=== PATIENT | female | born 1985 ===

== ENCOUNTER 2017-10-08 14:38 | Emergency (ER) | payer MEDICARE ==
[2017-10-08 16:50] VITALS: BMI 26.8
[2017-10-08 17:56] LABS: SQUAMOUS EPITHIAL 9 /hpf (0-5); URINE BACTERIA MANY (<OCC); URINE BILIRUBIN NEGATIVE (NEGATIVE); URINE BLOOD NEGATIVE (NEGATIVE); URINE CLARITY CLOUDY (Clear); URINE COLOR AMBER (YELLOW); URINE GLUCOSE (UA) NEG (Normal); URINE HYALINE CAST 0-2 /hpf (0-2); URINE LEUKOCYTE ESTERASE NEG Leu/uL (Negative); URINE PROTEIN 30 mg/dL (NEGATIVE)
--- NOTE | 2017-10-08 18:50 | OBHP ---
Datetime: 10/08/2017 18:41 IP Adm Impression: , intrauterine IP Chief Complaint Other: back pains IP Adm Impression Other: back pains IP Admit Plan: Observation/Evaluation Admit Comment, IP Provider: pt monitored and u/a done ketones/nitrate neg but bact Many D/C home wi th po Macrobid and increased po fluids Instructions given and will folllow in office Pelvic Type - PN: Adequate Extremities - PN: Normal Abdomen - PN: Abnormal Back - PN: Normal Breast - PN: Normal Lungs - PN: Normal Thyroid - PN: Normal Neurologic - PN: Normal HEENT - PN: Normal General - PN: Normal FHR - Baseline A Provider: 140 Membranes, Provider: Intact Contraction Comments Provider: none Comments, ACOG Physical Exam: Abd soft gravid No CVA tenderness Ext no calf tenderness Gestation - Est Wks by US: 34.0 IP Hx Assessment: The History has been Reviewed and is Current EGA AdmitDate IP: 34.0 IP Chief Complaint: Other NICHD Variability Prov Fetus A: Moderate 6-25bpm NICHD Decel Fetus A IP Provider: None Dilatation, Provider: closed Effacement, Provider: none Genitourinary Exam: Normal DTRs - PN: Normal
[2017-10-08 22:58] VITALS: BP 110/66; PULSE 89; O2SAT 100
== END 2017-10-08 18:35 | disposition home or self-care (01) ==
LOC: MERGE 14:38 → H.EROB2 14:38
DX: O26.893 Other specified pregnancy related conditions, third trimester (principal); M54.9 Dorsalgia, unspecified; Z3A.34 34 weeks gestation of pregnancy

== ENCOUNTER 2017-10-24 14:56 | Emergency (ER) | payer MEDICARE ==
[2017-10-24 15:36] VITALS: BMI 27.2
[2017-10-24] MEDS ORDERED: Betamethasone Soluspan 30 mg/5mL Inj Susp IM ONE (15:38)
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
[2017-10-24] MEDS ORDERED: Lactated Ringer's 1,000 ML IV SCH (16:30)
[2017-10-24 17:02] LABS: SQUAMOUS EPITHIAL 2 /hpf (0-5); URINE BACTERIA RARE (<OCC); URINE BILIRUBIN NEGATIVE (NEGATIVE); URINE BLOOD NEGATIVE (NEGATIVE); URINE CLARITY CLOUDY (Clear); URINE COLOR YELLOW (YELLOW); URINE GLUCOSE (UA) NEG (Normal); URINE LEUKOCYTE ESTERASE NEG Leu/uL (Negative); URINE PROTEIN 30 mg/dL (NEGATIVE)
--- NOTE | 2017-10-24 18:01 | US ---
Date of service: 10/24/2017 PROCEDURE: Limited transvaginal examination for evaluation of cervical length. HISTORY: cervical length only COMPARISON: None TECHNIQUE: Transvaginal pelvic ultrasound was performed. FINDINGS: The mean cervical length is 2.89 cm. Maximal cervical length was 3.33 cm. IMPRESSION: The average cervical length is 2.89 cm.
[2017-10-25 02:15] VITALS: BP 114/66; PULSE 102; O2SAT 100
== END 2017-10-24 19:08 | disposition home or self-care (01) ==
LOC: H.EROB2 14:56
DX: O44.03 Complete placenta previa NOS or without hemorrhage, third trimester (principal); Z23 Encounter for immunization; Z3A.36 36 weeks gestation of pregnancy
CPT/HCPCS: 76830; 76856; 81003; 96372; 99282; J0702

== ENCOUNTER 2017-10-25 14:05 | Emergency (ER) | payer MEDICARE ==
[2017-10-24 15:36] VITALS: BMI 27.2
[2017-10-25] MEDS ORDERED: Betamethasone Soluspan 30 mg/5mL Inj Susp IM ONE (15:24)
--- NOTE | 2017-10-25 19:53 | OBHP ---
Datetime: 10/25/2017 15:21 IP Adm Impression: , intrauterine IP Chief Complaint Other: Betamethasone dose Admit Comment, IP Provider: 32 y/o with EGA 36.3, EDC 11/19 who presents today for Betamethasone shot second dose. Denies CONTX, vaginal bleeding, LOF,trauma or recent sexual activity. Reports posi tive FM. ROS: unremarkable, except as per HPI. OBGYN: Hx sig for Placenta Previa and is schedule for next week. care p: Dr Go PMH: Chronic back pain FMH: mother HTN SURGH: cholecystectomy, back surgery, knee surgery, ovarian cystectomy Allergies: NKA MEDS: PNV A/P 32 y/o , GA 36.3 weeks with placenta previa, today here to get betamethasone second dose. MD Tiffany PGY1 Addendum: I saw examined patient. Patient without complaints at this time. Patient given second dose of beta methasone. I discussed plan with patient all patient questions answered. Patient has follow-up schedu led with her primary physician. [place] Lungs - PN: Normal Heart - PN: Normal HEENT - PN: Normal General - PN: Normal Comments, ACOG Physical Exam: GEN: NAD HEENT: Normocephalic, EOMI RESP: CTA b/l CV: RRR,No murmurs noted ABD: gravid LE: No edema. EGA AdmitDate IP: 36.3 Vital Signs Provider: Reviewed IP Chief Complaint: Other Datetime: 10/24/2017 15:43 FHR - Baseline A Provider: 130 (Annotations: Data stored by CPN on behalf of user)
[2017-10-25 21:40] VITALS: BP 108/72; PULSE 99; RESP 18; TEMP 98.2; O2SAT 100
== END 2017-10-25 16:21 | disposition home or self-care (01) ==
LOC: H.EROB2 14:12
DX: O09.93 Supervision of high risk pregnancy, unspecified, third trimester (principal); Z3A.36 36 weeks gestation of pregnancy
CPT/HCPCS: 96372; 99281; J0702

== ENCOUNTER 2017-11-02 05:52 | Inpatient (IN) | payer MEDICARE, MEDICAID ==
[2017-11-02] MEDS ORDERED: cefOXitin IV 1 gm in Dextrose 1 GM/50 ML BAG IVPB ONE (06:20)
[2017-11-02] MEDS: Lactated Ringer's 1,000 ML IV ONE ×2 (06:30→07:30)
[2017-11-02 07:06] LABS: BASO % 0.3 % (0.0-2.0); EOS % 0.5 % (0.0-4.0); HEMOGLOBIN 10.8 g/dL (12.0-16.0); MEAN CELL VOLUME 83.9 fl (81.0-99.0); MEAN CORPUSCULAR HEMOGLOBIN 29.5 pg (27.0-31.0); MEAN CORPUSCULAR HGB CONC 35.1 g/dL (33.0-37.0); MEAN PLATELET VOLUME 8.7 fl (7.2-11.7); MONO # 0.5 K/uL (0.0-0.8); MONO % 7.1 % (0.0-10.0); NEUT # 4.9 K/uL (1.8-7.0); NEUT % 65.1 % (50.0-75.0); NRBC % 0.1 % (0.0-0.0); RBC 3.67 Mil/uL (3.80-5.20); RED CELL DISTRIBUTION WIDTH 12.7 % (11.5-14.5); WHITE BLOOD COUNT 7.5 K/uL (4.8-10.8)
[2017-11-02] MEDS ORDERED: Lactated Ringer's 1,000 ML IV SCH (08:00)
[2017-11-02] MEDS ORDERED: Oxytocin 30 UNIT 30 UNITS/500 ML BAG IV ONE (08:01)
[2017-11-02] MEDS ORDERED: OXYTOCIN/0.9 % NS 20 UNIT/1,000 ML BAG IV SCH (08:15)
--- NOTE | 2017-11-02 08:19 | OBADHP ---
Datetime: 11/02/2017 08:12 IP Chief Complaint Other: total placenta previa IP Adm Impression Other: total placenta previa Admit Comment, IP Provider: Placenta previa totalis Had steroids given last wk Denies any bleeding o r pains Now for elective C/s for previa Pt aware of situation and explained risks of C/S and possible blood transfusion Pt has been type and cross for 2 units PC Extremities - PN: Normal Abdomen - PN: Abnormal Back - PN: Normal Breast - PN: Normal Lungs - PN: Normal Heart - PN: Normal Thyroid - PN: Normal Neurologic - PN: Normal HEENT - PN: Normal General - PN: Normal Presentation-Admit: Cephalic FHR - Baseline A Provider: 150's Membranes, Provider: Intact Contraction Comments Provider: none Comments, ACOG Physical Exam: Abd gravid NT ext no calf tenderness Gestation - Est Wks by US: 37+ IP Hx Assessment: The History has been Reviewed and is Current IP Chief Complaint: Scheduled Section; Other NICHD Variability Prov Fetus A: Moderate 6-25bpm NICHD Accel Fetus A IP Provider: 10X10 NICHD Decel Fetus A IP Provider: None Genitourinary Exam: Normal DTRs - PN: Normal EGA AdmitDate IP: 37.4 IP Adm Impression: Term, intrauterine IP Admit Plan: Admit to unit; Initiate Section protocol Datetime: 10/25/2017 15:21 Vital Signs Provider: Reviewed Datetime: 10/24/2017 15:43 Pelvic Type - PN: Not Done FHR Category Provider Fetus A: Category I
[2017-11-02] MEDS ORDERED: Morphine 1 mg/ml preservative-free Inj(Duramorph) ONE (09:33)
[2017-11-02] MEDS ORDERED: Sodium Chloride 0.9% 10 ML IV ONE (09:33)
[2017-11-02] MEDS ORDERED: ePHEDrine 50 mg/ml Inj ONE (09:33)
[2017-11-02] MEDS ORDERED: OXYTOCIN/0.9 % NS 20 UNIT/1,000 ML BAG IV ONE ×2 (12:35→18:15)
[2017-11-02] MEDS ORDERED: Oxycodone/Acetaminophen 5/325 mg Tab PO PRN (12:35)
[2017-11-02] MEDS ORDERED: cefOXitin IV 1 gm in Dextrose 1 GM/50 ML BAG IVPB SCH ×2 (12:45→19:30)
[2017-11-02] MEDS ORDERED: DiphenhydrAMINE 50 mg/ml Inj IVP PRN ×2 (12:49→18:15)
--- NOTE | 2017-11-02 13:20 | OBDS ---
DELIVERY PERSONNEL Nurse Hourly Shift Certified: suma Delivery Doctor: Liz Go MD Scrub Nurse: Marisel Brand Parimutuel Cashier: Cristina Carpenter RN/Lilian Guerrero Anesthesiologist: Darin Mccord MD Commercial Lending Vice President: suma Resident: suma MATERNAL INFORMATION Delivery Anesthesia: Spinal Medications in Delivery: Pitocin Estimated Blood Loss (ml): 850 Placenta Cultured: Yes Maternal Complications: Placenta Previa RN Comments: primary C section tolerated well by pt.No acute distress noted Provider Comments: see surgeons dictated note LABOR SUMMARY EDC: 11/19/2017 00:00 No. Babies in Womb: 1 Attempted: No Labor Anesthesia: None LABOR INFORMATION Reason for Induction: Not Applicable Oxytocin: N/A Group B Beta Strep: Negative Antibiotics # of Doses: 1 Antibiotics Time of Last Dose: Mefoxin 1 gram 1045--pre op Steroids Given: Full Course; > 24 Hours before Delivery Reason Steroids Not Administered: Not Applicable MEMBRANES Membranes Rupture Method: Artificial Rupture of Membranes: 11/02/2017 11:37 Length of Rupture (hrs): 0.02 Amniotic Fluid Color: Clear Amniotic Fluid Amount: Moderate Amniotic Fluid Odor: Normal STAGES OF LABOR Stage 3 hrs: 0 Stage 3 min: 1 VAGINAL DELIVERY Episiotomy: None Laceration Extension: N/A Laceration Type: None Sponge Count Correct: Yes Sharps Count Correct: Yes Count Comment: count correct x3 CSECTION DELIVERY Primary Indication: Placenta Previa Complete CSection Urgency: Elective CSection Incidence: Primary Labor: N/A Elective: Elective CSection Incision: Lower Uterine Transverse Uterine Closure: Double-layer closure BABY A INFORMATION Delivery Date/Time: 11/02/2017 11:38 Method of Delivery: Born in Route : No : N/A Forceps: N/A Vacuum Extraction: N/A Shoulder Dystocia : No SHOULDER DYSTOCIA BABY A Infant Delivery Date/Time: 11/02/2017 11:38 PRESENTATION/POSITION BABY A Presentation: Cephalic Cephalic Presentation: Vertex Breech Presentation: N/A PLACENTA INFORMATION BABY A Placenta Delivery Time : 11/02/2017 11:39 Placenta Method of Delivery: Manual Removal Placenta Status: Delivered SCORES BABY A Heart Rate 1 min: >100 bpm Resp Effort 1 min: Good Cry Reflex Irritability 1 min: Cough or Sneeze or Pulls Away Muscle Tone 1 min: Active Motion Color 1 min: Body [place], Extremities Blue Resuscitation Effort 1 min: Tactile Stimulation SCORE 1 MIN: 9 Heart Rate 5 min: >100 bpm Resp Effort 5 min: Good Cry Reflex Irritability 5 min: Cough or Sneeze or Pulls Away Muscle Tone 5 min: Active Motion Color 5 min: Body [place], Extremities Blue Resuscitation Effort 5 min: Tactile Stimulation SCORE 5 MIN: 9 INFANT INFORMATION BABY A Gestational Age at Delivery: 37.4 Gestational Status: Term Outcome : Liveborn Condition : Stable Infant Sex: Male IDENTIFICATION/MEDS BABY A ID Band Number: [id number] ID Band Location: Left Leg; Left Arm Vitamin K Given : Not Given Erythromycin Given: Not Given WEIGHT/LENGTH BABY A Birthweight (gms): 3070 Weight (lb): 6 Weight (oz): 12 Length Inches: 19.50 Length cms: 49.5 CORD INFORMATION BABY A No. Cord Vessels: 3 Nuchal Cord : N/A Nuchal Cord Other: n/a True Knot: n/a Infant Cord pH Baby Arterial: n/a Cord pH Baby Venous: n/a Cord Blood Taken: Yes Banking/Donate Info: n/a Infant Suction: Mouth ASSESSMENT BABY A Complications: None Physical Findings at Delivery: Within Normal Limits Physical Findings Other: had urine noted Infant Respirations: Appears Normal Cook Dessert/ALS Called : No Infant Care By: /Sharmila Transferred To: Remains with Mother
[2017-11-02] MEDS: Lactated Ringer's 1,000 ML IV SCH (20:00)
[2017-11-02] MEDS: cefOXitin IV 1 gm in Dextrose 1 GM/50 ML BAG IVPB SCH (20:09)
[2017-11-02] MEDS: Oxycodone/Acetaminophen 5/325 mg Tab PO PRN (21:17)
[2017-11-03] MEDS: cefOXitin IV 1 gm in Dextrose 1 GM/50 ML BAG IVPB SCH ×2 (04:00→09:00)
[2017-11-03] MEDS: Oxycodone/Acetaminophen 5/325 mg Tab PO PRN ×4 (06:47→20:20)
--- NOTE | 2017-11-03 08:18 | OBPPN ---
Datetime: 11/03/2017 08:12 PP Pain Prov: Within normal limits PP Pain Prov comment: No SOB chest or leg pains PP Nausea Prov: Denies PP Nausea Prov comment: jDenies C/F PP Breasts Prov: Normal PP Lungs Prov: Normal PP Abdomen/Uterus Prov: Abnormal PP Lochia Prov: Normal PP Vulva/Perineum Prov: Normal PP CVA Tenderness Prov: Normal PP Extremities Prov: Normal PP C/S Incision Prov: Normal PP Progress Prov: Normal PP Comments Phys Exam Prov: Breast not engorged. ABd soft ND fundus firm bel umb Dressing intact no sign of active bleeding Ext no edema or calf tenderness PP Impression Prov: Normal progression PP Plan Prov: Continue present management PP Progress Note Prov: CBC ordered OOB to chair with help Increase diet as tolerated Continue po ca re IP PP Procedures: None Vital Signs Provider PP: Reviewed
[2017-11-03 09:08] LABS: HEMOGLOBIN 9.5 g/dL (12.0-16.0); MEAN CELL VOLUME 84.9 fl (81.0-99.0); MEAN CORPUSCULAR HEMOGLOBIN 29.8 pg (27.0-31.0); MEAN CORPUSCULAR HGB CONC 35.1 g/dL (33.0-37.0); RBC 3.18 Mil/uL (3.80-5.20); RED CELL DISTRIBUTION WIDTH 12.6 % (11.5-14.5); WHITE BLOOD COUNT 10.9 K/uL (4.8-10.8)
[2017-11-03] MEDS: Lactated Ringer's 1,000 ML IV SCH (10:30)
[2017-11-03] MEDS ORDERED: cefOXitin IV 1 gm in Dextrose 1 GM/50 ML BAG IVPB ONE (12:42)
[2017-11-04] MEDS: Oxycodone/Acetaminophen 5/325 mg Tab PO PRN ×2 (08:20→21:25)
--- NOTE | 2017-11-04 11:20 | OBPPN ---
Datetime: 11/04/2017 11:16 PP Pain Prov: Within normal limits PP Pain Prov comment: No SOB chest or leg pains PP Nausea Prov: Denies PP Flatus Prov: Yes PP BM Prov: No PP Breasts Prov: Normal PP Lungs Prov: Normal PP Abdomen/Uterus Prov: Abnormal PP Lochia Prov: Normal PP Vulva/Perineum Prov: Normal PP CVA Tenderness Prov: Normal PP Extremities Prov: Normal PP C/S Incision Prov: Normal PP Progress Prov: Normal PP Comments Phys Exam Prov: breast NT not engorged Abd soft not distended depressible fundus firm be low the umb Dressing removed incision clean and dry no active bleeding Ext no calf tenderness PP Impression Prov: Normal progression PP Plan Prov: Continue present management PP Progress Note Prov: Dulcolax suppt this am Continue PO care and OOB and ambulation IP PP Procedures: None Vital Signs Provider PP: Reviewed
[2017-11-05] MEDS: Oxycodone/Acetaminophen 5/325 mg Tab PO PRN (05:25)
--- NOTE | 2017-11-05 09:47 | OBPPN ---
Datetime: 11/05/2017 09:43 PP Pain Prov: Within normal limits PP Pain Prov comment: No SOB, chest or leg pains PP Nausea Prov: Denies PP Flatus Prov: Yes PP BM Prov: Yes PP Breasts Prov: Normal PP Lungs Prov: Normal PP Abdomen/Uterus Prov: Abnormal PP Lochia Prov: Normal PP Vulva/Perineum Prov: Normal PP CVA Tenderness Prov: Normal PP Extremities Prov: Normal PP C/S Incision Prov: Normal PP Progress Prov: Normal PP Comments Phys Exam Prov: breast not engorged NT; ABd soft ND fundus firm below the umb Incision c lean and dry no suppt or disch Ext no edema or calf tenderness PP Impression Prov: Normal progression PP Plan Prov: Discharge PP Progress Note Prov: D/C home with rx for pain meds and instructions Continue PNC vit and iron IP PP Procedures: None
--- NOTE | 2017-11-05 09:49 | OBDCSUM ---
Datetime: 11/05/2017 09:46 Discharged to, Provider: Home Follow up at, Provider: Dr Donavan Alexander Instr Activity: Bedrest; May be up to bathroom; May be up for meals; May Shower Disch Instr Diet: Regular Discharge Instructions, Provider: Specific instructions as noted Discharge Diagnosis, Provider: Term Delivered Discharge Time: 11/05/2017 09:46 Follow up in weeks, Provider: 1 wk Disch Referrals: None Contraception discussed, Prov: Yes Disch Activity Restrictions: No exercising; No lifting; No driving; Minimize walking; Minimize stair -climbing; No sexual activity; Nothing in vagina - [place], tampons, douche Discharge Comment, Provider: rx for Percocet given Continue pnc vit and iron Discharge Diagnosis Prov Other: placenta previa Contraception after Delivery: Undecided Datetime: 11/05/2017 09:23 Discharged to, Provider: Home Follow up at, Provider: Dr. Donavan Alexander Instr Activity: Normal activity Disch Instr Diet: Regular Discharge Time: 11/05/2017 10:00 Follow up in weeks, Provider: 1 Week Disch Referrals: None Disch Activity Restrictions: No sexual activity; Nothing in vagina - [place], tampons, douche
--- NOTE | 2017-11-05 22:59 | OP ---
Copied To: Norbert Go MD Attending MD: Norbert Go MD PROCEDURE DATE: 11/02/2017 PREOPERATIVE DIAGNOSES: 1. at 37 weeks' gestation. 2. Placenta previa totalis. POSTOPERATIVE DIAGNOSES: 1. at 37 weeks' gestation. 2. Fibroid uterus. 3. Pelvic adhesions. SURGEON: Norbert Go MD POOL SERVICER: Ned Lobato DO who was there for the entire duration of the case. [place] Press Operator needed in the opening of the abdomen, closure of the abdomen, and delivery of the baby. ANESTHESIA USED: Spinal. ANESTHESIA ADMINISTERED BY: Malik Mccord MD ESTIMATED BLOOD LOSS: 850 mL. DRAINS USED: None. REPLACEMENT USED: None. FINDINGS: 1. Delivered living baby boy. Baby appears adequate for gestational age. Baby cried spontaneously. Pediatrist in attendance. score of 9 and 9. 2. Amniotic fluid clear. 3. Placenta posterior but total previa covering the entire cervical area. Removing total without any complications. 4. Both tubes and ovaries appear grossly within normal limits on inspection except for minor adhesions. 5. Fibroid, 2 cm from posterior aspect of the uterus noted to be present. 6. Adhesions in the pelvic holden and bowel, mostly on the left side, not posing any threat, left alone. DESCRIPTION OF PROCEDURE: The patient was taken to the operating room and placed on the operating table in a supine position. Following induction of spinal anesthesia, a Carter catheter was then inserted into the bladder and was draining clear fluid. At this time, the Venodyne boots were applied to both legs, and the abdomen was then draped and prepped in the usual sterile manner. Anesthesia tested and found to be well secured. A Pfannenstiel incision was then made using sharp dissection along the edges of the previous incision. The incision was then extended down to subcutaneous tissue also using sharp dissection. At this time, we then proceeded to obtain hemostasis by means of electrocoagulation. Following this, we then proceeded to identify the fascia. The fascia was then entered in the midline. The incision in the fascia was then extended laterally on each direction using sharp dissection. Rectus muscle was then identified, was then slit at the midline, thus exposing the peritoneum. Peritoneal layer was then picked up using two Tonya clamps, retracted superiorly and then carefully entered using sharp dissection. Under direct visualization, the incision on the peritoneum was then extended superiorly and inferiorly under direct visualization. Following this, the low transverse segment of the uterus was then identified. The visceral peritoneum covering this area was then entered using sharp dissection. Using blunt dissection, a bladder flap was then created and retracted inferiorly using the same Casey retractor. Following this, we then proceeded to enter the low transverse segment of the uterus using sharp dissection. Upon entering the uterine cavity, clear fluid noted to be present. The incision was then extended laterally on each direction using bandage scissors. Using amnioscopy procedure, living baby boy was then delivered. The baby appears adequate for gestational age. The baby cried spontaneously. The umbilicus was then doubly clamped, cut, and the baby handed to the pediatric personnel who was standing by. Samples of cord blood were then obtained. The placenta was noted to be posterior but previa covering the entire cervical area. The placenta was then removed in total without any complications. The uterus was then exteriorized to provide better visualization. The uterine cavity was then thoroughly cleaned using moist lap pads. The uterus was then massaged and contracted well. At this time, the uterine incision was then secured using multiple T-clamps, and the uterine incision was then approximated using 0 Vicryl suture in a continuous interlocking manner. Second layer was also placed using 0 Vicryl suture in a continuous manner. Hemostasis was checked and found to be well secured. The bladder flap was then approximated using a 2-0 Vicryl in a continuous manner. All operative areas were checked, hemostatically secured. A 2-cm posterior fibroid noted to be present on the posterior aspect of the womb towards the right side. Both tubes and ovaries were with minor adhesions, otherwise grossly within normal limits to inspection bilaterally. Adhesions of the bowel to both pelvic wall more on the right side or left side noted to be present. These adhesions have not posed any risk for future bowel entrapment, so they were allowed to remain in place. Free amniotic fluid and blood were evacuated from the pelvic cavity. The pelvic cavity was then irrigated using saline solution. All operative areas were checked, hemostatically secured. The uterus was then allowed to retract back into its original position. Again, all operative areas were checked and hemostatically secured. The peritoneum was then approximated using 0 Vicryl suture in a continuous manner. Rectus muscle was also approximated in the midline using also 0 Vicryl suture in a continuous manner. At this time, the fascia was then identified and was then approximated using 1 Vicryl suture in a continuous manner. Fascia was then checked and found to be free of defect. Subcutaneous tissue was irrigated using saline solution and approximated using several interrupted 2-0 plain sutures. The skin was then approximated using a 3-0 Prolene in a subcuticular fashion. Steri-Strips were then applied. Clear fluid noted to be present in the Carter bag at this time. The patient tolerated the procedure well. There were no complications. She was transferred to the recovery room in satisfactory condition. Sponge, instrument and needle counts correct x3. Norbert Go MD
[2017-11-05 23:09] VITALS: BP 111/72; PULSE 75; RESP 19; TEMP 98.2; O2SAT 98
== END 2017-11-05 16:40 | disposition home or self-care (01) | DRG 766 ==
LOC: H.EROB2 05:52 → H.L&D 06:23 → H.OB/GYN 16:02
PROVIDERS: ADMIT Specialist; ATTEND Specialist
PROC: 10D00Z1 Extraction of Products of Conception, Low, Open Approach (ICD-10-PCS; principal; 2017-11-02)
DX: O44.03 Complete placenta previa NOS or without hemorrhage, third trimester (principal); O34.13 Maternal care for benign tumor of corpus uteri, third trimester; N73.6 Female pelvic peritoneal adhesions (postinfective); D25.9 Leiomyoma of uterus, unspecified; Z37.0 Single live birth; Z3A.37 37 weeks gestation of pregnancy